=== PATIENT | female | born 1965 | race Two or more races ===

== ENCOUNTER → 2024-09-24 | Day surgery (SDC) | payer SELFPAY ==
[2024-09-21 15:03] LABS: Basophils # (auto) 0 10 ^3/uL (0-0.2); Basophils % (auto) 1.1 % (0.0-2.0); Eosinophils # (auto) 0.1 10 ^3/uL (0-0.8); Eosinophils % (auto) 2.7 % (0.0-7.0); Hematocrit 43.6 % (36.0-46.0); Hemoglobin 14.2 g/dL (12.2-16.2); Lymphocytes # (auto) 1.7 10 ^3/uL (0.4-5.4); Lymphocytes % (auto) 53.2 % (10.0-50.0); Mean Corpuscular Hemoglobin 26.4 pg (28.0-32.0); Mean Corpuscular Hgb Conc. 32.7 g/dL (32.0-36.0); Mean Corpuscular Volume 80.9 fL (80.0-100.0); Monocytes # (auto) 0.3 10 ^3/uL (0-1.3); Monocytes % (auto) 8.1 % (0.0-12.0); Neutrophils # (auto) 1.1 10 ^3/uL (1.6-8.6); Neutrophils % (auto) 34.9 % (37.0-80.0); Nucleated Red Blood Cells % 0.3 %; Platelet Count (auto) 274 10^3/uL (140-450); Red Blood Cells 5.39 10^6/uL (4.0-5.20); Red Cell Distribution Width 14.8 % (11.8-14.3); White Blood Cell 3.2 10^3/uL (4.4-10.8)
[2024-09-21 15:09] LABS: INR 0.99 (0.9-1.15); Partial Thromboplastin Time 23.8 SEC (24.5-34.5); Prothrombin Time 10.5 sec (9.3-11.8)
[2024-09-21 15:29] LABS: Alanine Aminotransferase 27 U/L (7-40); Albumin 4.6 g/dL (3.2-4.8); Alkaline Phosphatase 51 U/L (46-116); Anion Gap 7 (5-15); Aspartate Aminotransferase 19 U/L (<34); BUN/Creatinine Ratio 16.5 (10.0-20.0); Blood Urea Nitrogen 17 mg/dL (9-23); Carbon Dioxide 30 mmol/L (20-31); Chloride 106 mmol/L (98-107); Glucose 88 mg/dL (74-106); Potassium 3.7 mmol/L (3.5-5.1); Sodium 143 mmol/L (136-145); Total Protein 7.7 g/dL (5.7-8.2)
[2024-09-21 15:30] LABS: Bilirubin, Total 0.7 mg/dL (0.2-1.0)
[2024-09-21 15:34] LABS: Calcium 10.6 mg/dL (8.7-10.4)
[~2024-09-24] VITALS: Ht 154.9 cm; Wt 75.3 kg
[~2024-09-24] MED LIST: ATOR10TA52 PO; CETI10TA2 PO; CHOLCAP10 PO; LISI20TA56 PO; OMEP20TA PO; SODIUM CHLORIDE LOCK 10 ML ONE
[2024-09-24 10:40] VITALS: PULSE 47; RESP 12; O2SAT 100
[2024-09-24] MEDS: diphenhdrAMINE HCL 50 MG/1 ML VL ONE (10:53)
[2024-09-24] MEDS: MIDAZOLAM HCL 5 MG/ML-1ML VIAL ONE (10:53)
[2024-09-24] MEDS: fentaNYL CITRATE 100 MCG/2 ML VL ONE (10:53)
[2024-09-24 11:12] VITALS: PULSE 62; RESP 14; TEMP 98.1; O2SAT 100
[2024-09-24 11:42] VITALS: BP 117/73; PULSE 51; RESP 15; O2SAT 98
--- NOTE | 2024-09-24 12:09 | DVHOP2 ---
Operative Report DATE OF OPERATION: 09/24/24 PROCEDURE: Diagnostic Colonoscopy. PREOPERATIVE INDICATION: The patient is a 59 -year-old female undergoing colonoscopy for colon cancer screening POSTOPERATIVE DIAGNOSES: 1. Fefv-ih-zwmhxixs sigmoid diverticular disease 2. Trace internal hemorrhoids otherwise normal examination up to the cecum and terminal ileum PROCEDURE PERFORMED BY: Dilshad Khanna M.D. SCOPE: Olympus videocolonoscope. ASA CLASS: 2. PREOPERATIVE MEDICATIONS: Versed 3 mg, Fentanyl 75 mcg, Benadryl 50 mg PROCEDURE IN DETAIL: After obtaining an informed consent, the patient was placed on left lateral decubitus position. She was then sedated with the above medications. A rectal examination was performed that was normal. The colonoscope was then passed through the anus into the rectosigmoid and through the descending, transverse, and ascending colon up to the cecum with visualization of the appendiceal orifice, base of the cecum and the ileocecal valve. The colonoscope was then withdrawn. The distal 5-10 cm of the terminal ileum were normal No polyps or masses were seen. There was no colitis. Patient had [id number] sigmoid diverticular disease On retroflexion and straight on view she had trace internal hemorrhoids. The patient tolerated the procedure well without difficulty. WITHDRAWAL TIME: 6 minute QUALITY OF THE PREP: White Bowel Prep score: 9. COMPLICATIONS : None SPECIMENS: None DISPOSITION: State D/C to home PLAN: 1. Repeat colonoscopy in 5-7 years due to family history 2. Resume GI soft diet advance as tolerated 3. Outpatient follow up with me in 4-6 weeks to review results and discuss fur ther management 4. Increase fluid and fiber intake DILSHAD KHANNA MD Sep 24, 2024 12:09
== END | disposition home or self-care (01) ==
LOC: GI 08:43
PROVIDERS: ATTEND Internal Medicine Gastroenterology
DX: Z12.11 Encounter for screening for malignant neoplasm of colon (principal); K64.8 Other hemorrhoids; K57.30 Diverticulosis of large intestine without perforation or abscess without bleeding; Z80.0 Family history of malignant neoplasm of digestive organs; I10 Essential (primary) hypertension; E78.00 Pure hypercholesterolemia, unspecified; Z98.890 Other specified postprocedural states; Z79.899 Other long term (current) drug therapy; Z88.0 Allergy status to penicillin
CPT/HCPCS: 36415; 45378; 80053; 85025; 85610; 85730; J1200; J2250; J3010; J7030